=== PATIENT | female | born 1995 | race Caucasian/White ===

== ENCOUNTER 2017-06-09 12:18 | Emergency (ER) | payer OTHER ==
[2017-06-09 13:14] LABS: BASOPHILS % (AUTO) 0 % (0-3); EOSINOPHILS % (AUTO) 1 % (0-9); HEMATOCRIT 38 % (35-47); MEAN CORPUSCULAR HGB CONC 33.7 gm/dl (32.0-36.0); MEAN CORPUSCULAR VOLUME 85 fL (81-99)
[2017-06-09 13:21] VITALS: BP 138/83; PULSE 93; RESP 16; TEMP 97.2; O2SAT 99
== END 2017-06-09 14:00 | disposition home or self-care (01) | DRG 153 ==
LOC: ED 12:18
DX: J02.0 Streptococcal pharyngitis (principal)
CPT/HCPCS: 36415; 85025; 86308; 87430; 99282

== ENCOUNTER 2017-11-14 02:17 | Emergency (ER) | payer OTHER ==
[2017-11-14 02:38] VITALS: RESP 16; TEMP 97.8; O2SAT 100
[2017-11-14] MEDS ORDERED: APAP/HYDROCODONE 325/5 TAB PO ONE (02:55)
[2017-11-14] MEDS ORDERED: APAP/HYDROCODONE 325/5 TAB ONE (03:00)
[2017-11-14 03:12] VITALS: BP 138/85; PULSE 75
== END 2017-11-14 03:07 | disposition home or self-care (01) | DRG 159 ==
LOC: ED 02:17
DX: K04.7 Periapical abscess without sinus (principal)
CPT/HCPCS: 99282; 99283; A9270-GY